=== PATIENT | male | born 1940 | race Caucasian/White ===

== ENCOUNTER 2017-02-23 18:48 | Emergency (ER) | payer MEDICARE, MEDICAID ==
[~2017-02-23] VITALS: Ht 167.6 cm; Wt 68.2 kg
[~2017-02-23 18:48] MED LIST: CLEOCIN HC150 MG/CAP PO; COMBIVENT INH14.7 GM IH; LAMISIL AT1% TP; LASIX 20MG TABL20 MG PO; NEURONTIN600 MG/TAB PO; NITROSTAT0.4 MG/TAB SL; NORCO 325 MG-51 TAB PO; TENORMIN 2525 MG/TAB PO; TRIAMCINOLONE0.1% TOP
[2017-02-23 18:51] VITALS: TEMP 98.5
[2017-02-23 19:07] LABS: BASO # 0.1 (0.0-0.2); BASO % 0.9 % (0.0-2.0); EOS # 0.4 (0.0-0.7); EOS % 6.6 % (0-4.0); GRAN # 3.7 (1.4-6.5); GRAN % 68.9 % (42.2-75.2); HEMATOCRIT 38.9 % (42.0-52.0); HEMOGLOBIN 12.6 g/dl (13.5-18.0); LYMPH # 0.6 (1.2-3.4); LYMPH % 11.7 % (20.0-51.0); MEAN CELL VOLUME 83 fl (80.0-100.0); MEAN CORPUSCULAR HEMOGLOBIN 27 pg (27.0-31.0); MEAN CORPUSCULAR HGB CONC 32 g/dl (33.0-37.0); MEAN PLATELET VOLUME 8.5 fl (7.4-10.4); MONO # 0.6 (0.1-0.6); MONO % 11.5 % (1.7-9.3); PLATELET COUNT 326 K/mm3 (130-400); RED BLOOD COUNT 4.67 M/mm3 (4.20-5.60); REDCELL DISTRIBUTION WIDTH-CV 13.2 % (11.5-14.5); WHITE BLOOD COUNT 5.3 K/mm3 (4.8-10.8)
[2017-02-23 19:21] LABS: ADJUSTED CALCIUM 8.4 mg/dL (8.4-10.2); ALBUMIN 4.2 gm/dL (3.5-5.0); BILIRUBIN,TOTAL 0.7 mg/dL (0.0-1.0); CALCIUM 8.6 mg/dL (8.4-10.2); CREATININE, serum 0.56 mg/dL (0.66-1.25); POTASSIUM 4.6 mmol/L (3.4-5.0); TOTAL PROTEIN 7.1 gm/dL (6.4-8.2)
[2017-02-23] MEDS ORDERED: PREDNISONE20 MG PO (20:18)
[2017-02-23 21:11] VITALS: BP 122/80; PULSE 87
== END 2017-02-23 21:12 | disposition home or self-care (01) ==
LOC: COL.ER 18:48
PROVIDERS: Family Medicine
DX: J44.1 Chronic obstructive pulmonary disease with (acute) exacerbation (principal); I10 Essential (primary) hypertension; Z79.891 Long term (current) use of opiate analgesic; Z86.73 Personal history of transient ischemic attack (TIA), and cerebral infarction without residual deficits; I21.3 ST elevation (STEMI) myocardial infarction of unspecified site
CPT/HCPCS: J2930

== ENCOUNTER → 2017-06-24 | Outpatient (CLI) | payer MEDICARE, MEDICAID ==
[~2017-06-24] MED LIST changes: +PREDNISONE20 MG PO
== END ==
LOC: COL.RAD 09:01
DX: Z13.6 Encounter for screening for cardiovascular disorders (principal); M47.812 Spondylosis without myelopathy or radiculopathy, cervical region; I70.0 Atherosclerosis of aorta; Z98.1 Arthrodesis status; Z87.891 Personal history of nicotine dependence

== ENCOUNTER → 2017-07-25 | Outpatient (CLI) | payer MEDICARE, MEDICAID | LOC: COL.RAD 10:25 | DX: Z01.812 Encounter for preprocedural laboratory examination (principal); M48.02 Spinal stenosis, cervical region; R91.1 Solitary pulmonary nodule; J43.9 Emphysema, unspecified; M89.38 Hypertrophy of bone, other site; M50.00 Cervical disc disorder with myelopathy, unspecified cervical region; Z98.1 Arthrodesis status | CPT/HCPCS: A9585 ==

== ENCOUNTER → 2017-09-19 | Outpatient (CLI) | payer MEDICARE, MEDICAID ==
[~2017-09-19] VITALS: Ht 167.6 cm; Wt 69.7 kg
[~2017-09-19] MED LIST changes: +MOTRIN 200200 MG/TAB PO
[2017-09-19 10:20] VITALS: BP 110/72; PULSE 100
[2017-09-19 11:41] VITALS: BP 111/59; PULSE 88
== END ==
LOC: COL.RAD 09:26
DX: R22.1 Localized swelling, mass and lump, neck (principal); Z87.891 Personal history of nicotine dependence; Z80.9 Family history of malignant neoplasm, unspecified

== ENCOUNTER 2018-01-18 13:40 | Observation (INO) | payer MEDICARE, MEDICAID ==
[~2018-01-18] VITALS: Ht 167.6 cm; Wt 69.1 kg
[2018-01-18] MEDS ORDERED: LASIX 20MG TABL20 MG PO (13:53)
[2018-01-18] MEDS ORDERED: DULCOLAX STOOL100 MG PO (13:53)
[2018-01-18] MEDS ORDERED: TENORMIN 2525 MG/TAB PO (13:53)
[2018-01-18] MEDS ORDERED: COMBIRESP IH (13:54)
[2018-01-18] MEDS ORDERED: SMZ/TMPDS PO (13:54)
[2018-01-18] MEDS ORDERED: SANTYL30 TP (13:56)
[2018-01-18 14:48] LABS: BASO % 0.6 % (0.0-2.0); EOS # 0.2 (0.0-0.7); EOS % 2.4 % (0-4.0); GRAN # 4.9 (1.4-6.5); GRAN % 78.4 % (42.2-75.2); HEMATOCRIT 38.8 % (42.0-52.0); HEMOGLOBIN 12.1 g/dl (13.5-18.0); LYMPH # 0.3 (1.2-3.4); MEAN CELL VOLUME 80 fl (80.0-100.0); MEAN CORPUSCULAR HEMOGLOBIN 25 pg (27.0-31.0); MEAN CORPUSCULAR HGB CONC 31 g/dl (33.0-37.0); MEAN PLATELET VOLUME 8.3 fl (7.4-10.4); MONO # 0.8 (0.1-0.6); PLATELET COUNT 413 K/mm3 (130-400); RED BLOOD COUNT 4.85 M/mm3 (4.20-5.60)
[2018-01-18 15:01] LABS: ALBUMIN 4.1 gm/dL (3.5-5.0); BILIRUBIN,TOTAL 0.3 mg/dL (0.0-1.0); C-REACTIVE PROTEIN 4.4 mg/dL (0.0-0.9); CALCIUM 9.1 mg/dL (8.4-10.2); CREATININE, serum 0.9 mg/dL (0.66-1.25); POTASSIUM 4.4 mmol/L (3.4-5.0); TOTAL PROTEIN 8.1 gm/dL (6.4-8.2)
[2018-01-18 15:08] LABS: ERYTHROCYTE SEDIMENTATION RATE 22 mm/hr (0-30)
[2018-01-18 18:43] VITALS: BP 128/56; PULSE 97; TEMP 98
[2018-01-18 19:32] VITALS: BP 111/53; PULSE 104; TEMP 97.5
[2018-01-19 00:24] VITALS: BP 111/48; PULSE 113; TEMP 98.2
[2018-01-19 04:03] VITALS: BP 102/58; PULSE 107; TEMP 97.7
[2018-01-19 07:05] LABS: BASO % 0.6 % (0.0-2.0); EOS # 0.1 (0.0-0.7); EOS % 1.2 % (0-4.0); GRAN # 3.7 (1.4-6.5); GRAN % 75.9 % (42.2-75.2); HEMATOCRIT 38.6 % (42.0-52.0); LYMPH # 0.2 (1.2-3.4); LYMPH % 4.9 % (20.0-51.0); MEAN CELL VOLUME 82 fl (80.0-100.0); MEAN CORPUSCULAR HEMOGLOBIN 25 pg (27.0-31.0); MEAN CORPUSCULAR HGB CONC 31 g/dl (33.0-37.0); MEAN PLATELET VOLUME 8.7 fl (7.4-10.4); MONO # 0.8 (0.1-0.6); MONO % 16.8 % (1.7-9.3); PLATELET COUNT 372 K/mm3 (130-400); RED BLOOD COUNT 4.72 M/mm3 (4.20-5.60); REDCELL DISTRIBUTION WIDTH-CV 14.2 % (11.5-14.5)
[2018-01-19 07:10] LABS: CALCIUM 8.8 mg/dL (8.4-10.2); CREATININE, serum 0.88 mg/dL (0.66-1.25)
[2018-01-19 08:00] VITALS: BP 103/46; PULSE 93; TEMP 99.7
[2018-01-19 11:51] VITALS: BP 83/56; PULSE 88; TEMP 98.1
[2018-01-19 11:57] VITALS: BP 98/49
[2018-01-19] MEDS ORDERED: CLEOCIN HCL300 MG PO (11:57)
[2018-01-19 16:14] VITALS: BP 99/56; PULSE 107; TEMP 98.1
[2018-01-20] MEDS ORDERED: CIPRO750 MG PO (10:17)
== END 2018-01-19 18:05 | disposition home health service (06) ==
LOC: COL.ER → EDBD 13:40 → COL.ER 13:40 → MEDICAL 16:11
PROVIDERS: Emergency Medicine; Physician Assistant
DX: L03.115 Cellulitis of right lower limb (principal); L03.116 Cellulitis of left lower limb; I89.0 Lymphedema, not elsewhere classified; E87.1 Hypo-osmolality and hyponatremia; E87.3 Alkalosis; I10 Essential (primary) hypertension; J44.9 Chronic obstructive pulmonary disease, unspecified; E78.5 Hyperlipidemia, unspecified; R22.1 Localized swelling, mass and lump, neck; I25.2 Old myocardial infarction; F32.9 Major depressive disorder, single episode, unspecified; Z88.0 Allergy status to penicillin; Z91.030 Bee allergy status; Z87.891 Personal history of nicotine dependence; Z80.1 Family history of malignant neoplasm of trachea, bronchus and lung; Z80.0 Family history of malignant neoplasm of digestive organs
CPT/HCPCS: 99223-AI; A6456; G0378; G8978-GP; G8979-GP; J0696; J1650; J7050

== ENCOUNTER 2018-02-16 08:33 | Day surgery (SDC) | payer MEDICARE, MEDICAID ==
[~2018-02-16] VITALS: Ht 167.6 cm; Wt 67.8 kg
[~2018-02-16 08:33] MED LIST changes: +CIPRO750 MG PO; +CLEOCIN HCL300 MG PO; +COMBIRESP IH; +DULCOLAX STOOL100 MG PO; +SANTYL30 TP; +SMZ/TMPDS PO
[2018-02-16 09:39] VITALS: BP 116/59; PULSE 79; TEMP 97.4
[2018-02-16] MEDS ORDERED: TYLENOL 500MG500 MG PO (09:55)
[2018-02-16] MEDS ORDERED: NITROSTAT0.4 MG/TAB SL (09:55)
[2018-02-16] MEDS ORDERED: SENOKOT8.6 MG PO (09:57)
[2018-02-16] MEDS ORDERED: DULCOLAX TAB5 MG PO (09:58)
[2018-02-16] MEDS ORDERED: CEROVITE SENIOR1 TA1 PO (09:59)
[2018-02-16] MEDS ORDERED: ANTI-DIARRHEAL2 MG PO (10:02)
[2018-02-16 11:28] VITALS: BP 93/49; PULSE 82; TEMP 98.2
[2018-02-16 11:45] VITALS: BP 106/50; PULSE 82
[2018-02-16 12:00] VITALS: BP 103/50; PULSE 80
== END 2018-02-16 13:29 | disposition home or self-care (01) ==
LOC: SDCO 08:33
DX: C82.11 Follicular lymphoma grade II, lymph nodes of head, face, and neck (principal); J44.9 Chronic obstructive pulmonary disease, unspecified; Z80.9 Family history of malignant neoplasm, unspecified; Z87.891 Personal history of nicotine dependence; I25.2 Old myocardial infarction; I10 Essential (primary) hypertension
CPT/HCPCS: J2250; J2704; J3010; J7120

== ENCOUNTER 2018-03-25 02:41 | Emergency (ER) | payer MEDICARE, MEDICAID ==
[~2018-03-25] VITALS: Ht 167.6 cm; Wt 63.2 kg
[~2018-03-25 02:41] MED LIST changes: +ANTI-DIARRHEAL2 MG PO; +CEROVITE SENIOR1 TA1 PO; +DULCOLAX TAB5 MG PO; +FLOMAX 0.40.4 MG/CAP PO; +INCRUSE EL62.5 MCG/A IH; +LEVAQUIN 750MG750 M1 PO; +RT ADVAIR HFA 1112 G IH; +SENOKOT8.6 MG PO; +TYLENOL 500MG500 MG PO; +ZYLOPRIM 100MG100 MG PO
[2018-03-25 02:51] VITALS: TEMP 97.1
[2018-03-25] MEDS ORDERED: MIRALAX 255 GM255 GM PO (06:21)
[2018-03-25 06:51] VITALS: BP 94/38; PULSE 95
== END 2018-03-25 06:53 | disposition home or self-care (01) ==
LOC: COL.ER 02:41
DX: K59.00 Constipation, unspecified (principal); I10 Essential (primary) hypertension; E78.5 Hyperlipidemia, unspecified; J44.9 Chronic obstructive pulmonary disease, unspecified; F60.3 Borderline personality disorder

== ENCOUNTER 2018-05-15 15:49 | Observation (INO) | payer MEDICARE, MEDICAID ==
[~2018-05-15] VITALS: Ht 167.6 cm; Wt 72.5 kg
[~2018-05-15 15:49] MED LIST changes: +MIRALAX 255 GM255 GM PO
[2018-05-15 16:36] LABS: BASO % 0.4 % (0.0-2.0); EOS % 0.2 % (0-4.0); GRAN # 4.8 (1.4-6.5); GRAN % 94.8 % (42.2-75.2); HEMATOCRIT 35.7 % (42.0-52.0); HEMOGLOBIN 11.4 g/dl (13.5-18.0); LYMPH # 0.2 (1.2-3.4); LYMPH % 3.2 % (20.0-51.0); MEAN CELL VOLUME 84 fl (80.0-100.0); MEAN CORPUSCULAR HEMOGLOBIN 27 pg (27.0-31.0); MEAN CORPUSCULAR HGB CONC 32 g/dl (33.0-37.0); MONO % 0.8 % (1.7-9.3); PLATELET COUNT 325 K/mm3 (130-400); RED BLOOD COUNT 4.27 M/mm3 (4.20-5.60); REDCELL DISTRIBUTION WIDTH-CV 17.2 % (11.5-14.5)
[2018-05-15 17:00] LABS: ALBUMIN 3.8 gm/dL (3.5-5.0); BILIRUBIN,TOTAL 0.3 mg/dL (0.0-1.0); CALCIUM 8.6 mg/dL (8.4-10.2); CREATININE, serum 0.77 mg/dL (0.66-1.25); MAGNESIUM 1.7 mg/dL (1.6-2.3); POTASSIUM 4.4 mmol/L (3.4-5.0); TOTAL PROTEIN 6.5 gm/dL (6.4-8.2)
[2018-05-15] MEDS ORDERED: LEVAQUIN 5500 MG/TA1 PO (17:47)
[2018-05-15] MEDS ORDERED: ZOVIRAX 200MG200 MG PO (17:48)
[2018-05-15] MEDS ORDERED: K-DUR20 MEQ PO (17:48)
[2018-05-15 18:59] LABS: INR 1.1 (0.8-3.0)
[2018-05-15 19:02] LABS: PARTIAL THROMBOPLASTIN TIME 37.7 SECONDS (26.0-37.0)
[2018-05-15 20:16] VITALS: BP 107/62; PULSE 107; TEMP 98
[2018-05-15 23:55] VITALS: BP 99/54; PULSE 91; TEMP 98.2
[2018-05-16 01:00] LABS: COLLECTION METHOD CLEAN CATCH
[2018-05-16 01:07] LABS: PH 7 (5-8); SQUAMOUS EPITHELIAL 0-2 /hpf; URINE APPEARANCE Clear; URINE BACTERIA None Seen /hpf; URINE BILIRUBIN Negative (NEGATIVE); URINE BLOOD Negative (NEGATIVE); URINE COLOR Yellow; URINE GLUCOSE Negative (NEGATIVE); URINE KETONE Negative (NEGATIVE); URINE LEUKOCYTE ESTERASE Negative (NEGATIVE); URINE NITRATE Negative (NEGATIVE); URINE PROTEIN(semi-quant) Negative (NEGATIVE); URINE RBC 0-2 /hpf; URINE UROBILINOGEN Negative (NEGATIVE)
[2018-05-16 03:09] VITALS: BP 112/50; PULSE 98; TEMP 97.8
[2018-05-16 07:14] VITALS: BP 104/49; PULSE 90; TEMP 98
[2018-05-16 07:21] LABS: BASO % 0.2 % (0.0-2.0); EOS % 0.3 % (0-4.0); GRAN # 5.1 (1.4-6.5); GRAN % 81.3 % (42.2-75.2); HEMATOCRIT 32.7 % (42.0-52.0); HEMOGLOBIN 10.3 g/dl (13.5-18.0); LYMPH # 0.2 (1.2-3.4); LYMPH % 3.9 % (20.0-51.0); MEAN CELL VOLUME 85 fl (80.0-100.0); MEAN CORPUSCULAR HEMOGLOBIN 27 pg (27.0-31.0); MEAN CORPUSCULAR HGB CONC 32 g/dl (33.0-37.0); MEAN PLATELET VOLUME 8.5 fl (7.4-10.4); MONO # 0.8 (0.1-0.6); MONO % 13.3 % (1.7-9.3); PLATELET COUNT 313 K/mm3 (130-400); RED BLOOD COUNT 3.86 M/mm3 (4.20-5.60); REDCELL DISTRIBUTION WIDTH-CV 17.2 % (11.5-14.5)
[2018-05-16 07:33] LABS: ALBUMIN 3.4 gm/dL (3.5-5.0); BILIRUBIN,TOTAL 0.3 mg/dL (0.0-1.0); CALCIUM 8.4 mg/dL (8.4-10.2); CHOLESTEROL RISK RATIO 3.1; CREATININE, serum 0.68 mg/dL (0.66-1.25); POTASSIUM 3.8 mmol/L (3.4-5.0)
[2018-05-16 12:12] VITALS: BP 106/57; PULSE 80; TEMP 97.8
[2018-05-16 14:02] LABS: FOLATE (FOLIC ACID) 15.2 ng/mL (7.0-31.4)
[2018-05-16 16:37] VITALS: BP 100/60; PULSE 86; TEMP 98.2
[2018-05-16 19:36] VITALS: BP 95/57; PULSE 86; TEMP 98.1
[2018-05-16 23:45] VITALS: BP 98/51; PULSE 81; TEMP 98.3
[2018-05-17 03:49] VITALS: BP 82/45; PULSE 76; TEMP 98.4
[2018-05-17 05:00] VITALS: BP 91/51; PULSE 83
[2018-05-17 08:05] VITALS: BP 97/56; PULSE 74; TEMP 97.7
[2018-05-17] MEDS ORDERED: FLOMAX 0.40.4 MG/CAP PO (10:51)
[2018-05-17] MEDS ORDERED: PLAVIX 75MG TAB75 MG PO (10:52)
== END 2018-05-17 14:31 | disposition home or self-care (01) ==
LOC: COL.ER 15:49 → MEDICAL 17:38
PROVIDERS: Emergency Medicine; Nurse Practitioner Family
DX: G45.9 Transient cerebral ischemic attack, unspecified (principal); R33.9 Retention of urine, unspecified; Z87.440 Personal history of urinary (tract) infections; J44.9 Chronic obstructive pulmonary disease, unspecified; I25.2 Old myocardial infarction; I10 Essential (primary) hypertension; I95.9 Hypotension, unspecified; I25.10 Atherosclerotic heart disease of native coronary artery without angina pectoris; C85.98 Non-Hodgkin lymphoma, unspecified, lymph nodes of multiple sites; Z80.1 Family history of malignant neoplasm of trachea, bronchus and lung; Z87.891 Personal history of nicotine dependence; I89.0 Lymphedema, not elsewhere classified; G62.9 Polyneuropathy, unspecified; Z79.899 Other long term (current) drug therapy
CPT/HCPCS: A9585; G0378; J1644; J7030

== ENCOUNTER 2018-07-20 10:59 | Observation (INO) | payer MEDICARE, MEDICAID ==
[~2018-07-20] VITALS: Ht 167.6 cm; Wt 64.4 kg
[2018-07-20] VITALS (232 sets, daily range): BP systolic 92–107; BP diastolic 48–65; PULSE 92–97; TEMP 98.5–98.7; O2SAT 84–99
[~2018-07-20 10:59] MED LIST changes: +K-DUR20 MEQ PO; +LEVAQUIN 5500 MG/TA1 PO; +PLAVIX 75MG TAB75 MG PO; +ZOVIRAX 200MG200 MG PO
[2018-07-20 13:48] LABS: BASO # 0.1 (0.0-0.2); BASO % 0.6 % (0.0-2.0); EOS # 0.4 (0.0-0.7); EOS % 3.5 % (0-4.0); GRAN # 10.7 (1.4-6.5); GRAN % 86.2 % (42.2-75.2); HEMATOCRIT 40.3 % (42.0-52.0); HEMOGLOBIN 12.8 g/dl (13.5-18.0); LYMPH # 0.2 (1.2-3.4); LYMPH % 1.5 % (20.0-51.0); MEAN CELL VOLUME 84 fl (80.0-100.0); MEAN CORPUSCULAR HEMOGLOBIN 27 pg (27.0-31.0); MEAN CORPUSCULAR HGB CONC 32 g/dl (33.0-37.0); MEAN PLATELET VOLUME 9.2 fl (7.4-10.4); MONO # 0.9 (0.1-0.6); PLATELET COUNT 195 K/mm3 (130-400); RED BLOOD COUNT 4.81 M/mm3 (4.20-5.60); REDCELL DISTRIBUTION WIDTH-CV 13.7 % (11.5-14.5)
[2018-07-20 13:55] LABS: ALBUMIN 3.8 gm/dL (3.5-5.0); CALCIUM 8.9 mg/dL (8.4-10.2); CREATININE, serum 0.82 mg/dL (0.66-1.25); MAGNESIUM 1.8 mg/dL (1.6-2.3); POTASSIUM 4.2 mmol/L (3.4-5.0); TOTAL PROTEIN 6.7 gm/dL (6.4-8.2)
[2018-07-20 14:25] LABS: THYROID STIMULATING HORMONE 0.856 uIU/mL (0.465-4.680)
[2018-07-20 14:43] LABS: BILIRUBIN UNCONJUGATED 0.4 mg/dL (0.0-1.1); BILIRUBIN,DIRECT 0.1 mg/dL (0.0-0.4); BILIRUBIN,TOTAL 0.6 mg/dL (0.0-1.0)
[2018-07-20 15:54] LABS: COLLECTION METHOD CATHETER
[2018-07-20 16:05] LABS: MUCOUS Present /lpf; PH 5 (5-8); SQUAMOUS EPITHELIAL None Seen /hpf; URINE APPEARANCE Cloudy; URINE BACTERIA Rare /hpf; URINE BILIRUBIN Negative (NEGATIVE); URINE BLOOD 2+ (NEGATIVE); URINE CALCIUM OXALATE CRYSTAL Present /hpf; URINE COLOR Yellow; URINE GLUCOSE Negative (NEGATIVE); URINE KETONE Negative (NEGATIVE); URINE LEUKOCYTE ESTERASE 2+ (NEGATIVE); URINE NITRATE Positive (NEGATIVE); URINE PROTEIN(semi-quant) 2+ (NEGATIVE); URINE RBC 20-50 /hpf; URINE UROBILINOGEN Negative (NEGATIVE); URINE WBC >50 /hpf
[2018-07-21] VITALS (7 sets, daily range): BP systolic 89–106; BP diastolic 53–63; PULSE 82–102; TEMP 97.5–98.7
[2018-07-21 08:16] LABS: BASO # 0.1 (0.0-0.2); BASO % 0.5 % (0.0-2.0); EOS # 0.4 (0.0-0.7); EOS % 3.8 % (0-4.0); GRAN # 8.9 (1.4-6.5); GRAN % 87.7 % (42.2-75.2); HEMATOCRIT 39.6 % (42.0-52.0); HEMOGLOBIN 12.5 g/dl (13.5-18.0); LYMPH # 0.1 (1.2-3.4); LYMPH % 1.4 % (20.0-51.0); MEAN CELL VOLUME 86 fl (80.0-100.0); MEAN CORPUSCULAR HEMOGLOBIN 27 pg (27.0-31.0); MEAN CORPUSCULAR HGB CONC 32 g/dl (33.0-37.0); MEAN PLATELET VOLUME 8.9 fl (7.4-10.4); MONO # 0.6 (0.1-0.6); MONO % 5.5 % (1.7-9.3); PLATELET COUNT 157 K/mm3 (130-400); RED BLOOD COUNT 4.63 M/mm3 (4.20-5.60); REDCELL DISTRIBUTION WIDTH-CV 13.7 % (11.5-14.5)
[2018-07-21 08:34] LABS: CALCIUM 8.5 mg/dL (8.4-10.2); CREATININE, serum 0.67 mg/dL (0.66-1.25); POTASSIUM 4.5 mmol/L (3.4-5.0)
[2018-07-22 04:16] VITALS: BP 106/60; PULSE 74; TEMP 98.2
[2018-07-22 05:56] LABS: MEAN CELL VOLUME 85 fl (80.0-100.0); MEAN CORPUSCULAR HEMOGLOBIN 27 pg (27.0-31.0); MEAN CORPUSCULAR HGB CONC 32 g/dl (33.0-37.0); MEAN PLATELET VOLUME 9.2 fl (7.4-10.4); PLATELET COUNT 158 K/mm3 (130-400); RED BLOOD COUNT 4.08 M/mm3 (4.20-5.60); REDCELL DISTRIBUTION WIDTH-CV 13.5 % (11.5-14.5)
[2018-07-22 06:04] LABS: HEMATOCRIT 34.7 % (42.0-52.0)
[2018-07-22 06:12] LABS: CALCIUM 8.4 mg/dL (8.4-10.2); CREATININE, serum 0.59 mg/dL (0.66-1.25); POTASSIUM 4.1 mmol/L (3.4-5.0)
[2018-07-22 06:45] LABS: BAND 49 % (0-10); EOSINOPHIL 4 % (0-4); LYMPHOCYTE 3 % (20.0-51.0); METAMYELOCYTE 1 % (0-0); NEUTROPHILS 41 % (42.0-75.2); PLATELET ESTIMATE NORMAL (NORMAL)
[2018-07-22 06:46] LABS: HYPOCHROMIA 1+; TOXIC GRANULATION PRESENT
[2018-07-22 06:59] VITALS: BP 111/61; PULSE 90; TEMP 98.3
[2018-07-22] MEDS ORDERED: CIPRO 500MG TA500 MG PO (11:29)
[2018-07-22 12:31] VITALS: BP 102/63; PULSE 85; TEMP 97.9
== END 2018-07-22 14:27 | disposition home or self-care (01) ==
LOC: ICU 10:59 → EU 11:18 → ICU 11:18 → EU 11:18 → ICU 11:58 → SURG 18:17 → ICU 18:17 → SURG 18:17 → ICU 19:30 → SURG 19:30
PROVIDERS: Hospitalist; Physician Assistant
DX: I95.9 Hypotension, unspecified (principal); I25.10 Atherosclerotic heart disease of native coronary artery without angina pectoris; I25.2 Old myocardial infarction; I10 Essential (primary) hypertension; E78.5 Hyperlipidemia, unspecified; J44.9 Chronic obstructive pulmonary disease, unspecified; I89.0 Lymphedema, not elsewhere classified; J90 Pleural effusion, not elsewhere classified; N40.1 Benign prostatic hyperplasia with lower urinary tract symptoms; R33.8 Other retention of urine; C82.90 Follicular lymphoma, unspecified, unspecified site; R53.81 Other malaise; Z79.02 Long term (current) use of antithrombotics/antiplatelets; Z88.6 Allergy status to analgesic agent; Z91.030 Bee allergy status; Z88.0 Allergy status to penicillin; Z88.8 Allergy status to other drugs, medicaments and biological substances; Z91.018 Allergy to other foods; Z86.73 Personal history of transient ischemic attack (TIA), and cerebral infarction without residual deficits; Z87.891 Personal history of nicotine dependence
CPT/HCPCS: OP; G8978-GP; G8979-GP; G8987-GO; G8988-GO; J0744; J1644; J7030; J7040

== ENCOUNTER → 2019-02-21 | Outpatient (CLI) | payer MEDICARE, MEDICAID ==
[~2019-02-21] MED LIST changes: +CIPRO 500MG TA500 MG PO
== END ==
LOC: COL.RAD 13:23
DX: C85.80 Other specified types of non-Hodgkin lymphoma, unspecified site (principal); C79.51 Secondary malignant neoplasm of bone; J43.9 Emphysema, unspecified; M96.1 Postlaminectomy syndrome, not elsewhere classified; M48.02 Spinal stenosis, cervical region; G31.9 Degenerative disease of nervous system, unspecified; G95.9 Disease of spinal cord, unspecified; Z98.1 Arthrodesis status; Z86.73 Personal history of transient ischemic attack (TIA), and cerebral infarction without residual deficits
CPT/HCPCS: A9585

== ENCOUNTER 2019-04-03 15:03 | Emergency (ER) | payer MEDICARE, MEDICAID ==
[~2019-04-03] VITALS: Ht 165.1 cm; Wt 78.4 kg
[2019-04-03 15:53] LABS: BASO % 0.8 % (0.0-2.0); EOS # 0.2 (0.0-0.7); EOS % 4.6 % (0-4.0); GRAN # 3.8 (1.4-6.5); GRAN % 75.5 % (42.2-75.2); HEMATOCRIT 39.8 % (42.0-52.0); HEMOGLOBIN 12.5 g/dl (13.5-18.0); LYMPH # 0.2 (1.2-3.4); LYMPH % 4.8 % (20.0-51.0); MEAN CELL VOLUME 89 fl (80.0-100.0); MEAN CORPUSCULAR HEMOGLOBIN 28 pg (27.0-31.0); MEAN CORPUSCULAR HGB CONC 31 g/dl (33.0-37.0); MEAN PLATELET VOLUME 9.3 fl (7.4-10.4); MONO # 0.7 (0.1-0.6); MONO % 13.1 % (1.7-9.3); PLATELET COUNT 203 K/mm3 (130-400); RED BLOOD COUNT 4.49 M/mm3 (4.20-5.60); REDCELL DISTRIBUTION WIDTH-CV 12.8 % (11.5-14.5)
[2019-04-03 16:06] LABS: ALBUMIN 4.1 gm/dL (3.5-5.0); BILIRUBIN,TOTAL 0.4 mg/dL (0.0-1.0); CALCIUM 9.2 mg/dL (8.4-10.2); CREATININE, serum 0.86 (0.66-1.25); POTASSIUM 3.9 mmol/L (3.4-5.0); TOTAL PROTEIN 7.4 gm/dL (6.4-8.2)
[2019-04-03 17:15] LABS: PROTHROMBIN TIME 11.2 SECONDS (9.7-12.8)
[2019-04-03 17:21] LABS: COLLECTION METHOD CATHETER
[2019-04-03 17:36] LABS: PH 5 (5-8); SQUAMOUS EPITHELIAL None Seen /hpf; URINE APPEARANCE Cloudy; URINE BACTERIA None Seen /hpf; URINE BILIRUBIN Negative (NEGATIVE); URINE BLOOD 3+ (NEGATIVE); URINE COLOR Yellow; URINE GLUCOSE Negative (NEGATIVE); URINE KETONE Negative (NEGATIVE); URINE LEUKOCYTE ESTERASE 2+ (NEGATIVE); URINE NITRATE Negative (NEGATIVE); URINE PROTEIN(semi-quant) Negative (NEGATIVE); URINE RBC >50 /hpf; URINE UROBILINOGEN Negative (NEGATIVE)
[2019-04-03 17:39] VITALS: BP 114/84; PULSE 80; TEMP 98.6
[2019-04-03] MEDS ORDERED: LEVAQUIN 5500 MG/TA1 PO (17:53)
== END 2019-04-03 19:16 | disposition home or self-care (01) ==
LOC: COL.ER 15:03
PROVIDERS: Physician Assistant
DX: T83.098A Other mechanical complication of other urinary catheter, initial encounter (principal); N39.0 Urinary tract infection, site not specified; C85.90 Non-Hodgkin lymphoma, unspecified, unspecified site; I25.10 Atherosclerotic heart disease of native coronary artery without angina pectoris; J44.9 Chronic obstructive pulmonary disease, unspecified; I10 Essential (primary) hypertension; Z79.02 Long term (current) use of antithrombotics/antiplatelets
CPT/HCPCS: A4216; C1769; J0696; J2270; J7030

== ENCOUNTER 2019-04-26 05:29 | Observation (INO) | payer MEDICARE, MEDICAID ==
[~2019-04-26] VITALS: Ht 165.1 cm; Wt 80.5 kg
[2019-04-26] VITALS (11 sets, daily range): BP systolic 90–119; BP diastolic 38–90; PULSE 70–115; TEMP 97.6–98.3
[2019-04-26] MEDS ORDERED: ZOHYDRO ER10 MG PO (06:06)
[2019-04-26] MEDS ORDERED: LYRICA 75MG CAP75 MG PO (06:09)
[2019-04-26] MEDS ORDERED: NORCO 325 MG-51 TAB PO (06:09)
[2019-04-26] MEDS ORDERED: COMBIRESP IH (06:10)
--- NOTE | 2019-04-26 06:58 | NUR ---
Talked with Dr. Turpin on the phone. He will bring H+P with him pre-op.
--- NOTE | 2019-04-26 11:19 | NUR ---
Patient resting in bed. post op. Report from Cornelius. Patient Vss on O2. Patient CBI slowed running completly clear. Patient tolerating diet. Will monitor.
--- NOTE | 2019-04-26 17:03 | NUR ---
Patient resting in bed. Dinner ordered. Patient was up to the bathroom & was unable to have BM, but did pass flatus, stressed importance of not straining to have a Bm. Cbi to slow rate, after being up to bathroom, more blood was noted in tubing. Iv to Int. Vss on o2.
--- NOTE | 2019-04-26 19:00 | NUR ---
Report received. Assumed care for rn shift mgr. Assessment complete. VS stable. Denies pain at this time but states he hasnt had a bowel movement in three days. Discussed a stool softner at HS as well as some prune juice. Drank 480mls total apple juice/prune juice. CBI infusing at a slow rate-clear yellow to light pink return with occasional small dime size clots. Encouraged to call for questions or concerns. Verbalizes understanding. WIll monitor.
[2019-04-27 01:15] VITALS: BP 113/49; PULSE 85; TEMP 98.8
[2019-04-27 03:41] VITALS: BP 103/52; PULSE 85; TEMP 98.2
--- NOTE | 2019-04-27 06:00 | NUR ---
Urine remained light yellow-no clots noted all this shift. Denies pain at this time. Rested off and on most of shift. States slept more last night then in a week. Denies needs. will monitor.
--- NOTE | 2019-04-27 07:26 | NUR ---
Patient resting in bed eating breakfast, not yet ready to get up to the chair. Patient thankful for cares. Took am medication, one tab norco for chronic L.shoulder pain. Int. Boles to SONYA, pale yellow output with clamped CBI. Will monitor.
[2019-04-27 07:34] VITALS: BP 96/65; PULSE 76; TEMP 98.3
--- NOTE | 2019-04-27 10:28 | NUR ---
JIAN met with the patient to discuss discharge plan. The patient lives alone in the [facility] in [place]. He states he does not have any family support. He states having a half brother that lives in [place], but that he is young enough to be his son and that he is not in contact with him. He states he has an uncle that lives in [place], but that his uncle does not like him. He reports independence with ADLs and has two canes, a walker, and home oxygen from [facility]]. The patient states that he does have a nurse from [facility] and services from [facility]. SW contacted Irish at [facility] and confirmed that the patient has an hour a week of halfway through them. JIAN contacted Oxana at [facility] and confirmed that the patient has four hours a week of light housekeeping through them. The patient states that he receives transportation to his appointments from [facility] ([facility] [employer] [facility] in [place]. The patient's PCP is Dr. Yesica Lam and he receives his medications by delivery through [facility]. He reports no difficulties obtaining his meds. The patient does not have advanced directives. JIAN discussed with the patient the importance of having a DPOA-HC. The patient reports that he has a friend that he has been thinking about asking, but that his friend's daughter just . He states that he would like to give him some time before asking him. The patient was interested in obtaining a form for DPOA-HC. JIAN provided. The patient plans to return home upon discharge and resume services through [facility] and [facility]. The patient states that he will need transportation back home. He states that he does have money for a cab. JIAN also discussed with him the transportation services he has through his Medicaid. The patient verbalized understanding. JIAN to continue to follow.
--- NOTE | 2019-04-27 11:40 | NUR ---
Initial visit; Patient thanked Physics Technician for looking in on him and visiting. Physics Technician offered God's blessings and wished him well.
[2019-04-27 12:27] VITALS: BP 102/38; PULSE 58; TEMP 98.6
--- NOTE | 2019-04-27 12:30 | NUR ---
Orders obtained per Dr. Turpin to prime & pull. Patient started on 6 bottle routine. He ordered lunch, will monitor
[2019-04-27 17:04] VITALS: BP 111/61; PULSE 95; TEMP 98.8
--- NOTE | 2019-04-27 17:19 | NUR ---
Patient resting in bed. Dinner ordered. Patient up to the bathroom, unable to have a BM. Patient given prune juice & MOM. Tylenol for chronic pain-reviewed with him, [place] can play a roll in constipation. He is voiding pink tinged urine without difficulty. Completing 6 bottle routine. Will monitor.
--- NOTE | 2019-04-27 18:47 | NUR ---
Report received from Chanel ENNIS. No distress noted. Pt repositioned for comfort. No needs at this time.
--- NOTE | 2019-04-27 19:23 | NUR ---
Patient completed [address] Turpin rounded. Patient to DC in am, he is unable to get ride home tonight. Patient main concern is constipation, Dr Turpin made aware. Orders obtained. Patient eating dinner, he continues to be desmond thankful for cares. Bedside report to Ronit ENNIS
[2019-04-27 19:42] VITALS: BP 107/55; PULSE 88; TEMP 98.1
--- NOTE | 2019-04-27 20:25 | NUR ---
Pt resting in bed with HOB elevated. Pt denies pain. No distress noted. Respirations even and unlabored. Lungs clear, bases diminished. Abdomen is distended, firm and tender to touch. BS are hyperactive. Pt reports that he has not had a BM for 4+ days and that constipation is a recurrent problem for him. Pt becomes dyspneic with exertion. O2@3L. Spo2 is 93%. Pts skin is very dry/flaking. Edema 1+ to BLE. Pts right side is chronically weak. 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 Pt voiding with urinal. RW INT. Pt denies needs. Will continue to montior.
--- NOTE | 2019-04-27 20:25 | NUR ---
HS meds given as well as PRN bowel meds to help with constipation. No needs noted. Will continue to monitor.
[2019-04-28 00:29] VITALS: BP 116/57; PULSE 91; TEMP 98.4
--- NOTE | 2019-04-28 03:50 | NUR ---
Pt called for help with urinal. Pt voided clear pinkish, yellow urine. Pt has not had a BM yet, but was assisted to the bathroom to attempt again.
[2019-04-28 04:27] VITALS: BP 128/59; PULSE 98; TEMP 98.3
--- NOTE | 2019-04-28 06:30 | NUR ---
Pt is sleeping this AM. No distress noted. Patient was up throughout night after taking Lasix. Pt had great urinary output but no bowel movement. No needs noted.
[2019-04-28 11:00] VITALS: BP 118/91; PULSE 73; TEMP 98.3
[2019-04-28 14:54] VITALS: BP 121/65; PULSE 101; TEMP 98
--- NOTE | 2019-04-28 18:00 | NUR ---
Voiding pink tinged yellow urine without difficulty. Dulcolax suppository and laxatives given for c/o constipation. Small hard stool as results. States cannot eat. Complained of weakness with ambulation.
[2019-04-28 19:56] VITALS: BP 117/51; PULSE 94; TEMP 98.4
[2019-04-29 00:48] VITALS: BP 115/56; PULSE 80; TEMP 97.6
[2019-04-29 04:25] VITALS: BP 108/61; PULSE 83; TEMP 97.7
--- NOTE | 2019-04-29 05:22 | NUR ---
PT STATED HE'S PASSING GAS. PT ADMIN. MIRALAX LAST NIGHT AT [facility]. PT GIVEN MOM AND PRUNE JUICE THIS MORNING.
[2019-04-29 08:55] VITALS: BP 117/86; PULSE 116; TEMP 98.6
[2019-04-29 11:30] VITALS: BP 117/67; PULSE 88; TEMP 99.1
--- NOTE | 2019-04-29 15:45 | NUR ---
Had several loose stools. Voiding clear yellow urine. No complaints. Dismissed to home per cab.
== END 2019-04-29 15:45 | disposition home or self-care (01) ==
LOC: SDCO 05:29 → SURG 09:51 → SDCO 04-27 18:40 → SURG 04-27 18:43
PROVIDERS: ADMIT Urology
DX: N40.1 Benign prostatic hyperplasia with lower urinary tract symptoms (principal); N13.8 Other obstructive and reflux uropathy; R33.8 Other retention of urine; Z79.02 Long term (current) use of antithrombotics/antiplatelets; I25.10 Atherosclerotic heart disease of native coronary artery without angina pectoris; I10 Essential (primary) hypertension; I25.2 Old myocardial infarction; J44.9 Chronic obstructive pulmonary disease, unspecified; C83.90 Non-follicular (diffuse) lymphoma, unspecified, unspecified site; G63 Polyneuropathy in diseases classified elsewhere; Z87.891 Personal history of nicotine dependence; Z85.01 Personal history of malignant neoplasm of esophagus; F60.3 Borderline personality disorder; E78.5 Hyperlipidemia, unspecified; I89.0 Lymphedema, not elsewhere classified; Z86.73 Personal history of transient ischemic attack (TIA), and cerebral infarction without residual deficits; I87.2 Venous insufficiency (chronic) (peripheral); L97.919 Non-pressure chronic ulcer of unspecified part of right lower leg with unspecified severity; L97.929 Non-pressure chronic ulcer of unspecified part of left lower leg with unspecified severity; F43.10 Post-traumatic stress disorder, unspecified; F90.9 Attention-deficit hyperactivity disorder, unspecified type; Z79.899 Other long term (current) drug therapy
CPT/HCPCS: OP; G0378; J0690; J2250; J2405; J2704; J3010; J7120